=== PATIENT | male | born 1935 | race Caucasian/White ===

== ENCOUNTER 2016-03-29 14:20 | Emergency (ER) | payer OTHER, BC ==
[~2016-03-29] VITALS: Ht 182.9 cm; Wt 72.1 kg
[~2016-03-29 14:20] MED LIST: ASPIR 8181 M1 PO; ASPIRIN325 MG PO; CELEXA40 MG PO; COZAAR100 MG PO; DAILY VALUE1 EACH PO; DEPAKOTE500 MG PO; DONEPEZIL HCL5 MG PO; FISH OIL500 MG PO; GALANTAMINE HBR16 MG PO; HYTRIN1 MG PO; IRON18 MG PO; IRON325 M1 PO; LASIX20 MG PO; LOPRESSOR25 MG PO; LOSARTAN POTAS100 MG PO; MEGESTROL400 MG/10 PO; MIRALAX17 GM PO; MIRALAX255 GM PO; MULTIVITAMIN1 EAC2 PO; NAMENDA XR7 MG PO; PRAVACHOL40 MG PO; PROTONIX40 MG PO; RAZADYNE ER16 MG PO; SEROQUEL50 MG PO; SUCRALFATE1 GM PO; TYLENOL REGULA325 MG PO; XANAX0.25 MG PO; ZOFRAN4 MG PO
[2016-03-29 17:22] LABS: INTER. NORMALIZED RATIO 2.6; PROTHROMBIN TIME 27.5 (9.2-11.2)
[2016-03-29 18:12] VITALS: BP 133/81
== END 2016-03-29 18:13 | disposition home or self-care (01) ==
LOC: EME 14:20
PROVIDERS: Emergency Medicine
PROC: 3E0234Z Introduction of Serum, Toxoid and Vaccine into Muscle, Percutaneous Approach (ICD-10-PCS; principal; 2016-03-29)
DX: S02.2XXA Fracture of nasal bones, initial encounter for closed fracture (principal); S00.81XA Abrasion of other part of head, initial encounter; W19.XXXA Unspecified fall, initial encounter; F03.90 Unspecified dementia, unspecified severity, without behavioral disturbance, psychotic disturbance, mood disturbance, and anxiety; I48.91 Unspecified atrial fibrillation; Z79.01 Long term (current) use of anticoagulants; I10 Essential (primary) hypertension; J44.9 Chronic obstructive pulmonary disease, unspecified; K21.9 Gastro-esophageal reflux disease without esophagitis; E78.5 Hyperlipidemia, unspecified; R26.2 Difficulty in walking, not elsewhere classified; G89.29 Other chronic pain; M54.9 Dorsalgia, unspecified; Z95.0 Presence of cardiac pacemaker; Z87.891 Personal history of nicotine dependence
CPT/HCPCS: 70450; 70486; 71010; 85610; 99281; 99285

== ENCOUNTER 2017-03-10 13:39 | Emergency (ER) | payer OTHER, BC ==
[~2017-03-10] VITALS: Ht 177.8 cm; Wt 70.0 kg
[2017-03-10 14:06] LABS: HEMATOCRIT 34.8 % (38.0-50.0); HEMOGLOBIN 11.8 G/DL (12.5-16.6); MCH 31.7 PG (29.0-34.0); MCHC 33.9 G/DL (30.0-36.0); MCV 93.5 FL (86-99); PLATELET COUNT 250 K/uL (156-360); RBC DIS.WIDTH-CV 11.9 % (11.8-14.6); RBC DIS.WIDTH-SD 40.9 % (39-53); RED BLOOD COUNT 3.72 M/uL (4.00-5.50); WHITE BLOOD COUNT 5.2 K/uL (4.1-10.2)
[2017-03-10 14:17] LABS: ALBUMIN 3.5 g/dL (3.2-4.8)
[2017-03-10 14:18] LABS: CHLORIDE 109 mEq/L (99-109); POTASSIUM 3.6 mEq/L (3.7-5.4); SODIUM 142 mEq/L (136-147)
[2017-03-10 14:20] LABS: GLUCOSE 107 mg/dL (70-99); TOTAL PROTEIN 7.2 g/dL (6.4-8.3)
[2017-03-10 14:22] LABS: TOTAL BILIRUBIN 0.6 mg/dL (0.0-1.0)
[2017-03-10 14:23] LABS: ALKALINE PHOSPHATASE 80 IU/L (3-129)
[2017-03-10 14:24] LABS: CREATININE 0.9 mg/dL (0.6-1.3); GFR ESTIMATE (CALCULATED) > 59 mL/min/ (58.99-99999)
[2017-03-10 14:25] LABS: AST (GOT) 22 IU/L (2-34); UREA NITROGEN (BUN) 10 mg/dL (9-23)
[2017-03-10 14:26] LABS: ALT (GPT) 14 IU/L (3-49)
[2017-03-10] MEDS ORDERED: ZOFRAN4 MG PO (19:08)
[2017-03-10 19:24] VITALS: BP 139/84
== END 2017-03-10 19:25 | disposition home or self-care (01) ==
LOC: EME 13:39
DX: R11.2 Nausea with vomiting, unspecified (principal); T37.3X5A Adverse effect of other antiprotozoal drugs, initial encounter; K21.9 Gastro-esophageal reflux disease without esophagitis; J44.9 Chronic obstructive pulmonary disease, unspecified; I10 Essential (primary) hypertension; E78.5 Hyperlipidemia, unspecified; F03.90 Unspecified dementia, unspecified severity, without behavioral disturbance, psychotic disturbance, mood disturbance, and anxiety; F32.9 Major depressive disorder, single episode, unspecified; Z87.891 Personal history of nicotine dependence; Z95.0 Presence of cardiac pacemaker; Z86.73 Personal history of transient ischemic attack (TIA), and cerebral infarction without residual deficits; Z85.9 Personal history of malignant neoplasm, unspecified; Z88.2 Allergy status to sulfonamides
CPT/HCPCS: 80053; 81003; 85027; 99281; 99285

== ENCOUNTER 2017-04-03 11:24 | Emergency (ER) | payer OTHER, BC ==
[~2017-04-03] VITALS: Ht 177.8 cm; Wt 67.7 kg
[2017-04-03 12:35] LABS: BASOPHIL (%) 0.4 % (0-1); EOSINOPHIL (%) 4.1 % (0-5); EOSINOPHIL COUNT 0.3 K/uL (0-0.3); HEMATOCRIT 37.2 % (38.0-50.0); HEMOGLOBIN 12.5 G/DL (12.5-16.6); IMMATURE GRANULOCYTE (%) 0.4 % (0.0-0.7); LYMPHOCYTE (%) 18.9 % (15-42); LYMPHOCYTE COUNT 1.5 K/uL (1.0-2.8); MCH 31.8 PG (29.0-34.0); MCHC 33.6 G/DL (30.0-36.0); MCV 94.7 FL (86-99); MONOCYTE (%) 8.5 % (3-12); MONOCYTE COUNT 0.7 K/uL (0-0.8); NEUTROPHIL (%) 67.7 % (45-76); NEUTROPHIL COUNT 5.2 K/uL (1.8-6.4); PLATELET COUNT 247 K/uL (156-360); RBC DIS.WIDTH-SD 45.3 % (39-53); RED BLOOD COUNT 3.93 M/uL (4.00-5.50); WHITE BLOOD COUNT 7.7 K/uL (4.1-10.2)
[2017-04-03 12:47] LABS: CHLORIDE 108 mEq/L (99-109); SODIUM 137 mEq/L (136-147)
[2017-04-03 12:49] LABS: GLUCOSE 119 mg/dL (70-99)
[2017-04-03 12:53] LABS: CREATININE 0.9 mg/dL (0.6-1.3); GFR ESTIMATE (CALCULATED) > 59 mL/min/ (58.99-99999)
[2017-04-03 12:54] LABS: UREA NITROGEN (BUN) 12 mg/dL (9-23)
[2017-04-03 18:41] VITALS: BP 135/89
[2017-04-03 19:11] LABS: C DIFF TOXIN POSITIVE (NEGATIVE)
== END 2017-04-03 18:44 | disposition home or self-care (01) ==
LOC: EME 11:24
PROVIDERS: Emergency Medicine; Nurse Practitioner Family
DX: R19.7 Diarrhea, unspecified (principal); F03.90 Unspecified dementia, unspecified severity, without behavioral disturbance, psychotic disturbance, mood disturbance, and anxiety; R10.9 Unspecified abdominal pain; Z87.19 Personal history of other diseases of the digestive system; I10 Essential (primary) hypertension; E78.5 Hyperlipidemia, unspecified; Z86.73 Personal history of transient ischemic attack (TIA), and cerebral infarction without residual deficits; Z95.0 Presence of cardiac pacemaker; Z87.891 Personal history of nicotine dependence
CPT/HCPCS: 80048; 81003; 83605; 83630; 85025; 87177; 87493; J7030

== ENCOUNTER 2017-09-10 10:10 | Inpatient (IN) | payer OTHER, BC ==
[~2017-09-10] VITALS: Ht 180.3 cm; Wt 71.9 kg
[~2017-09-10 10:10] MED LIST changes: +NAMENDA10 MG PO
[2017-09-10 11:52] LABS: HEMATOCRIT 33.2 % (38.0-50.0); HEMOGLOBIN 11.6 G/DL (12.5-16.6); MCH 32.7 PG (29.0-34.0); MCHC 34.9 G/DL (30.0-36.0); MCV 93.5 FL (86-99); PLATELET COUNT 200 K/uL (156-360); RBC DIS.WIDTH-CV 13.1 % (11.8-14.6); RBC DIS.WIDTH-SD 44.8 % (39-53); RED BLOOD COUNT 3.55 M/uL (4.00-5.50)
[2017-09-10 11:58] LABS: INTER. NORMALIZED RATIO 2.8
[2017-09-10 12:15] LABS: CHLORIDE 109 mEq/L (99-109); POTASSIUM 4.1 mEq/L (3.7-5.4); SODIUM 138 mEq/L (136-147)
[2017-09-10 12:17] LABS: GLUCOSE 122 mg/dL (70-99)
[2017-09-10 12:21] LABS: CREATININE 1.1 mg/dL (0.6-1.3); GFR ESTIMATE (CALCULATED) > 59 mL/min/ (58.99-99999); UREA NITROGEN (BUN) 18 mg/dL (9-23)
[2017-09-10 12:25] LABS: TROP-I INTERPRETATION NEGATIVE; TROPONIN-I 0.01 ng/mL (0.0-0.30)
[2017-09-10] MEDS ORDERED: PANTOPRAZOLE SO40 MG PO (15:39)
[2017-09-10] MEDS ORDERED: MEGACE 40 MG40 MG/ML PO (15:45)
[2017-09-10] MEDS ORDERED: COUMADIN2.5 MG PO (15:47)
[2017-09-10] MEDS ORDERED: MELATONIN10 M1 PO (15:47)
[2017-09-10 18:24] LABS: APPEARANCE CLEAR ((CLEAR)); BILIRUBIN NEGATIVE; BLOOD SMALL; COLOR YELLOW ((YELLOW)); GLUCOSE (STRIP) NEGATIVE; KETONES 5; LEUKOCYTES NEGATIVE; NITRITE NEGATIVE; PROTEIN (STRIP) NEGATIVE; SPECIFIC GRAVITY 1.018 (1.000-1.030)
[2017-09-10 18:36] LABS: BACTERIA NONE SEEN /HPF; EPITHELIAL CELLS NONE SEEN /HPF; MUCUS NONE SEEN /LPF; RED BLOOD CELLS 0-5 /HPF (0-5); UCUL ADDED? NO; WHITE BLOOD CELLS 0-5 /HPF (0-5)
[2017-09-10 19:00] VITALS: BP 140/84
[2017-09-10 19:16] VITALS: BP 149/97
[2017-09-10 20:42] VITALS: BP 160/90
[2017-09-10 21:48] VITALS: BP 148/80
[2017-09-10 22:05] VITALS: BP 145/78
[2017-09-10 23:05] VITALS: BP 152/71
[2017-09-11] VITALS (14 sets, daily range): BP systolic 125–165; BP diastolic 65–85
[2017-09-11 07:04] LABS: INTER. NORMALIZED RATIO 2.3
[2017-09-11 07:17] LABS: CHLORIDE 110 MEQ/L (99-109); GFR ESTIMATE (CALCULATED) > 59 mL/min/ (58.99-99999); GLUCOSE 114 mg/dL (70-99); POTASSIUM 4.1 MEQ/L (3.7-5.4); SODIUM 143 MEQ/L (136-147); UREA NITROGEN (BUN) 17 mg/dL (9-23)
[2017-09-11 14:49] LABS: HEMATOCRIT 26.2 % (38.0-50.0); MCV 95.6 FL (86-99)
[2017-09-11 14:50] LABS: HEMOGLOBIN 8.9 G/DL (12.5-16.6)
[2017-09-11 15:00] LABS: INTER. NORMALIZED RATIO 1.8
[2017-09-11 15:03] LABS: PTT 30.4 SEC (25-37)
[2017-09-12] VITALS (8 sets, daily range): BP systolic 135–193; BP diastolic 67–88
[2017-09-12 06:49] LABS: BASOPHIL (%) 0.3 % (0-1); EOSINOPHIL (%) 2.3 % (0-5); EOSINOPHIL COUNT 0.2 K/uL (0-0.3); HEMATOCRIT 26.3 % (38.0-50.0); HEMOGLOBIN 8.8 G/DL (12.5-16.6); IMMATURE GRANULOCYTE (%) 0.4 % (0.0-0.7); LYMPHOCYTE (%) 17.3 % (15-42); LYMPHOCYTE COUNT 1.4 K/uL (1.0-2.8); MCH 32.1 PG (29.0-34.0); MCHC 33.5 G/DL (30.0-36.0); MONOCYTE (%) 8.6 % (3-12); MONOCYTE COUNT 0.7 K/uL (0-0.8); NEUTROPHIL (%) 71.1 % (45-76); NEUTROPHIL COUNT 5.6 K/uL (1.8-6.4); PLATELET COUNT 142 K/uL (156-360); RBC DIS.WIDTH-CV 13.3 % (11.8-14.6); RBC DIS.WIDTH-SD 46.5 % (39-53); WHITE BLOOD COUNT 7.8 K/uL (4.1-10.2)
[2017-09-12 06:52] LABS: INTER. NORMALIZED RATIO 1.4
[2017-09-12 06:54] LABS: PTT 26.2 SEC (25-37)
[2017-09-12 07:03] LABS: RED BLOOD COUNT 2.74 M/uL (4.00-5.50)
[2017-09-12 07:11] LABS: ALBUMIN 3.6 G/DL (3.2-4.8); ALKALINE PHOSPHATASE 62 IU/L (3-129); ALT (GPT) 23 IU/L (3-49); AST (GOT) 27 IU/L (2-34); CHLORIDE 111 MEQ/L (99-109); GFR ESTIMATE (CALCULATED) > 59 mL/min/ (58.99-99999); GLUCOSE 136 mg/dL (70-99); POTASSIUM 3.8 MEQ/L (3.7-5.4); SODIUM 143 MEQ/L (136-147); TOTAL BILIRUBIN 1.3 MG/DL (0.0-1.0); TOTAL PROTEIN 6.2 G/DL (6.4-8.3); UREA NITROGEN (BUN) 17 mg/dL (9-23)
[2017-09-12 10:56] LABS: HEMATOCRIT 24.8 % (38.0-50.0); HEMOGLOBIN 8.2 G/DL (12.5-16.6); MCV 96.5 FL (86-99)
[2017-09-13 04:00] VITALS: BP 157/74
[2017-09-13 05:56] LABS: BASOPHIL (%) 0.2 % (0-1); EOSINOPHIL (%) 0.3 % (0-5); HEMATOCRIT 26.1 % (38.0-50.0); HEMOGLOBIN 8.7 G/DL (12.5-16.6); IMMATURE GRANULOCYTE (%) 0.9 % (0.0-0.7); LYMPHOCYTE COUNT 0.8 K/uL (1.0-2.8); MCH 31.3 PG (29.0-34.0); MCHC 33.3 G/DL (30.0-36.0); MCV 93.9 FL (86-99); MONOCYTE (%) 8.1 % (3-12); MONOCYTE COUNT 0.5 K/uL (0-0.8); NEUTROPHIL (%) 78.5 % (45-76); NEUTROPHIL COUNT 5.2 K/uL (1.8-6.4); PLATELET COUNT 120 K/uL (156-360); RED BLOOD COUNT 2.78 M/uL (4.00-5.50); WHITE BLOOD COUNT 6.6 K/uL (4.1-10.2)
[2017-09-13 06:02] LABS: INTER. NORMALIZED RATIO 1.4
[2017-09-13 06:22] LABS: ALBUMIN 3.1 G/DL (3.2-4.8); ALKALINE PHOSPHATASE 50 IU/L (3-129); ALT (GPT) 20 IU/L (3-49); AST (GOT) 24 IU/L (2-34); CHLORIDE 111 MEQ/L (99-109); CREATININE 0.9 MG/DL (0.6-1.3); GFR ESTIMATE (CALCULATED) > 59 mL/min/ (58.99-99999); GLUCOSE 134 mg/dL (70-99); POTASSIUM 3.7 MEQ/L (3.7-5.4); SODIUM 141 MEQ/L (136-147); TOTAL BILIRUBIN 1.5 MG/DL (0.0-1.0); TOTAL PROTEIN 5.5 G/DL (6.4-8.3); UREA NITROGEN (BUN) 22 mg/dL (9-23)
[2017-09-13 08:30] VITALS: BP 143/94
[2017-09-13 11:24] VITALS: BP 136/64
[2017-09-13 15:44] VITALS: BP 132/65
[2017-09-13 19:51] VITALS: BP 148/69
[2017-09-13 23:48] VITALS: BP 133/71
[2017-09-14 04:00] VITALS: BP 106/53
[2017-09-14 06:54] LABS: INTER. NORMALIZED RATIO 1.3
[2017-09-14 08:12] LABS: HEMATOCRIT 25.3 % (38.0-50.0); HEMOGLOBIN 8.6 G/DL (12.5-16.6); MCV 94.4 FL (86-99)
[2017-09-14 08:22] VITALS: BP 130/71
[2017-09-14 11:58] VITALS: BP 109/57
[2017-09-14 15:24] VITALS: BP 109/59
[2017-09-14 20:26] VITALS: BP 151/69
[2017-09-14 23:44] VITALS: BP 108/59
[2017-09-15 04:50] VITALS: BP 108/57
[2017-09-15 07:38] LABS: HEMATOCRIT 23.6 % (38.0-50.0); HEMOGLOBIN 8.1 G/DL (12.5-16.6); MCV 93.7 FL (86-99)
[2017-09-15 07:46] LABS: INTER. NORMALIZED RATIO 1.4
[2017-09-15 08:28] VITALS: BP 135/63
[2017-09-15 11:55] VITALS: BP 132/64
[2017-09-15 16:57] VITALS: BP 142/68
[2017-09-15 19:27] VITALS: BP 116/56
[2017-09-15 23:55] VITALS: BP 139/61
[2017-09-16] VITALS (8 sets, daily range): BP systolic 128–173; BP diastolic 61–93
[2017-09-16 08:02] LABS: BASOPHIL (%) 0.2 % (0-1); EOSINOPHIL (%) 2.6 % (0-5); EOSINOPHIL COUNT 0.3 K/uL (0-0.3); HEMATOCRIT 24.9 % (38.0-50.0); HEMOGLOBIN 8.3 G/DL (12.5-16.6); IMMATURE GRANULOCYTE (%) 0.8 % (0.0-0.7); LYMPHOCYTE COUNT 0.8 K/uL (1.0-2.8); MCH 31.4 PG (29.0-34.0); MCHC 33.3 G/DL (30.0-36.0); MCV 94.3 FL (86-99); MONOCYTE (%) 6.4 % (3-12); MONOCYTE COUNT 0.6 K/uL (0-0.8); RBC DIS.WIDTH-CV 14.4 % (11.8-14.6); RBC DIS.WIDTH-SD 48.7 % (39-53); RED BLOOD COUNT 2.64 M/uL (4.00-5.50); WHITE BLOOD COUNT 9.8 K/uL (4.1-10.2)
[2017-09-16 08:03] LABS: PLATELET COUNT 186 K/uL (156-360)
[2017-09-16 08:09] LABS: INTER. NORMALIZED RATIO 1.7
[2017-09-16 08:29] LABS: ALKALINE PHOSPHATASE 69 IU/L (3-129); ALT (GPT) 25 IU/L (3-49); AST (GOT) 24 IU/L (2-34); CHLORIDE 115 MEQ/L (99-109); CREATININE 0.9 MG/DL (0.6-1.3); GFR ESTIMATE (CALCULATED) > 59 mL/min/ (58.99-99999); GLUCOSE 127 mg/dL (70-99); POTASSIUM 3.2 MEQ/L (3.7-5.4); SODIUM 145 MEQ/L (136-147); TOTAL BILIRUBIN 1.4 MG/DL (0.0-1.0); TOTAL PROTEIN 5.7 G/DL (6.4-8.3); UREA NITROGEN (BUN) 29 mg/dL (9-23)
[2017-09-17 05:21] VITALS: BP 135/67
[2017-09-17 06:59] LABS: BASOPHIL (%) 0.2 % (0-1); EOSINOPHIL (%) 1.5 % (0-5); EOSINOPHIL COUNT 0.1 K/uL (0-0.3); HEMATOCRIT 25.1 % (38.0-50.0); HEMOGLOBIN 8.3 G/DL (12.5-16.6); IMM.RETIC FRACTION 23.9 % (3-19); IMMATURE GRANULOCYTE (%) 1.1 % (0.0-0.7); LYMPHOCYTE COUNT 0.9 K/uL (1.0-2.8); MCH 31.2 PG (29.0-34.0); MCHC 33.1 G/DL (30.0-36.0); MCV 94.4 FL (86-99); MONOCYTE (%) 9.1 % (3-12); MONOCYTE COUNT 0.8 K/uL (0-0.8); NEUTROPHIL (%) 78.1 % (45-76); NEUTROPHIL COUNT 6.7 K/uL (1.8-6.4); PLATELET COUNT 193 K/uL (156-360); RBC DIS.WIDTH-CV 14.5 % (11.8-14.6); RBC DIS.WIDTH-SD 49.6 % (39-53); RED BLOOD COUNT 2.66 M/uL (4.00-5.50); RETIC HGB EQUIVALENT 29.9 (28-36); WHITE BLOOD COUNT 8.6 K/uL (4.1-10.2)
[2017-09-17 07:00] LABS: RETICULOCYTE COUNT 3.5 % (0.5-1.8)
[2017-09-17 07:23] LABS: CHLORIDE 115 MEQ/L (99-109); CREATININE 0.9 MG/DL (0.6-1.3); GFR ESTIMATE (CALCULATED) > 59 mL/min/ (58.99-99999); GLUCOSE 125 mg/dL (70-99); IRON 31 MCG/DL (35-150); POTASSIUM 3.2 MEQ/L (3.7-5.4); SODIUM 147 MEQ/L (136-147); TRANSFERRIN (TIBC) 171.5 mg/dL (215-380); TRANSFERRIN SATUR. 18 % (20-55); UREA NITROGEN (BUN) 22 mg/dL (9-23)
[2017-09-17 08:04] VITALS: BP 146/79
[2017-09-17 08:31] LABS: FERRITIN 129 NG/ML (22-322)
[2017-09-17 08:36] LABS: FOLIC ACID (FOLATE) 7.9 NG/ML (5.0-22.0)
[2017-09-17 10:43] LABS: MAGNESIUM 1.9 mg/dl (1.3-2.7)
[2017-09-17 11:10] VITALS: BP 142/71
[2017-09-17 16:28] VITALS: BP 162/79
[2017-09-17 20:20] VITALS: BP 162/82
[2017-09-17 23:59] VITALS: BP 127/79
[2017-09-18] VITALS (10 sets, daily range): BP systolic 120–159; BP diastolic 63–84
[2017-09-18 07:51] LABS: INTER. NORMALIZED RATIO 2.2
[2017-09-18 08:02] LABS: PCO2 25 mm Hg (35-45); PO2 57 mm Hg (80-100); pH 7.51 (7.35-7.45)
[2017-09-18 08:03] LABS: BASE EXCESS -2.3 mEq/L (-3 to +3); BICARBONATE 19.9 mEq/L (22-26); CARBOXY HGB 2.5 % (0-5); COMMENTS - BLOOD GASES A+C+; DEVICE VENTURI; FI02 50 %; METHEMOGLOBIN 1.1 % (0-1.5); O2 FLOW 12 L/MIN; SITE LR; TOTAL RESP RATE 25 resp/min
[2017-09-18 08:39] LABS: TROP-I INTERPRETATION NEGATIVE; TROPONIN-I 0.02 ng/mL (0.0-0.30)
[2017-09-18 12:09] LABS: BASOPHIL (%) 0.1 % (0-1); EOSINOPHIL (%) 1.3 % (0-5); EOSINOPHIL COUNT 0.1 K/uL (0-0.3); HEMATOCRIT 25.8 % (38.0-50.0); HEMOGLOBIN 8.6 G/DL (12.5-16.6); IMMATURE GRANULOCYTE (%) 0.9 % (0.0-0.7); LYMPHOCYTE (%) 8.9 % (15-42); LYMPHOCYTE COUNT 0.8 K/uL (1.0-2.8); MCH 31.5 PG (29.0-34.0); MCHC 33.3 G/DL (30.0-36.0); MCV 94.5 FL (86-99); MONOCYTE (%) 8.9 % (3-12); MONOCYTE COUNT 0.8 K/uL (0-0.8); NEUTROPHIL (%) 79.9 % (45-76); NEUTROPHIL COUNT 6.8 K/uL (1.8-6.4); PLATELET COUNT 174 K/uL (156-360); RBC DIS.WIDTH-SD 50.6 % (39-53); RED BLOOD COUNT 2.73 M/uL (4.00-5.50); WHITE BLOOD COUNT 8.5 K/uL (4.1-10.2)
[2017-09-18 12:41] LABS: CHLORIDE 117 MEQ/L (99-109); CREATININE 0.9 MG/DL (0.6-1.3); GFR ESTIMATE (CALCULATED) > 59 mL/min/ (58.99-99999); GLUCOSE 141 mg/dL (70-99); POTASSIUM 3.2 MEQ/L (3.7-5.4); SODIUM 149 MEQ/L (136-147); UREA NITROGEN (BUN) 20 mg/dL (9-23)
[2017-09-18 21:29] LABS: COMMENTS - BLOOD GASES C+; DEVICE NRB; SITE R RAD
[2017-09-18 21:30] LABS: BASE EXCESS -1 mEq/L (-3 to +3); BICARBONATE 21.2 mEq/L (22-26); CARBOXY HGB 2.1 % (0-5); FI02 100 %; METHEMOGLOBIN 0.8 % (0-1.5); O2 SATURATION (CALCULATED) 91.3 % (95-99); PCO2 26 mm Hg (35-45); PO2 51 mm Hg (80-100); pH 7.52 (7.35-7.45)
[2017-09-18 22:23] LABS: HIGH-SENS C-REACTIVE PROTEIN > 8.00 MG/DL (0.02-0.20)
[2017-09-19] VITALS (24 sets, daily range): BP systolic 100–154; BP diastolic 50–99
[2017-09-19 06:55] LABS: BASOPHIL (%) 0.2 % (0-1); EOSINOPHIL (%) 1.7 % (0-5); EOSINOPHIL COUNT 0.1 K/uL (0-0.3); HEMATOCRIT 27.2 % (38.0-50.0); HEMOGLOBIN 8.8 G/DL (12.5-16.6); LYMPHOCYTE (%) 10.5 % (15-42); LYMPHOCYTE COUNT 0.9 K/uL (1.0-2.8); MCH 31.4 PG (29.0-34.0); MCHC 32.4 G/DL (30.0-36.0); MCV 97.1 FL (86-99); MONOCYTE (%) 8.6 % (3-12); MONOCYTE COUNT 0.7 K/uL (0-0.8); NEUTROPHIL COUNT 6.5 K/uL (1.8-6.4); NRBC (%) 0.2 /100 WBC (0-0); PLATELET COUNT 130 K/uL (156-360); RBC DIS.WIDTH-SD 52.6 % (39-53); WHITE BLOOD COUNT 8.3 K/uL (4.1-10.2)
[2017-09-19 06:56] LABS: INTER. NORMALIZED RATIO 2.5
[2017-09-19 07:11] LABS: ALKALINE PHOSPHATASE 95 IU/L (3-129); ALT (GPT) 20 IU/L (3-49); AST (GOT) 23 IU/L (2-34); CHLORIDE 114 MEQ/L (99-109); CREATININE 0.9 MG/DL (0.6-1.3); GFR ESTIMATE (CALCULATED) > 59 mL/min/ (58.99-99999); GLUCOSE 145 mg/dL (70-99); POTASSIUM 3.3 MEQ/L (3.7-5.4); SODIUM 147 MEQ/L (136-147); TOTAL BILIRUBIN 1.4 MG/DL (0.0-1.0); TOTAL PROTEIN 5.8 G/DL (6.4-8.3); UREA NITROGEN (BUN) 21 mg/dL (9-23)
[2017-09-19 07:14] LABS: COMMENTS - BLOOD GASES C+; DEVICE HHFNC; FI02 80 %; O2 FLOW 35 L/MIN; SITE LR
[2017-09-19 07:15] LABS: BASE EXCESS -0.3 mEq/L (-3 to +3); BICARBONATE 22 mEq/L (22-26); CARBOXY HGB 2.1 % (0-5); METHEMOGLOBIN 1 % (0-1.5); O2 SATURATION (CALCULATED) 93.2 % (95-99); PCO2 27 mm Hg (35-45); PO2 57 mm Hg (80-100); pH 7.52 (7.35-7.45)
[2017-09-19 09:44] LABS: MAGNESIUM 1.8 mg/dl (1.3-2.7)
[2017-09-19 09:50] LABS: PHOSPHORUS 3.2 mg/dL (2.5-4.9)
[2017-09-19 10:40] LABS: HIGH-SENS C-REACTIVE PROTEIN > 8.00 MG/DL (0.02-0.20)
[2017-09-20] VITALS (34 sets, daily range): BP systolic 62–134; BP diastolic 31–79
[2017-09-20 06:22] LABS: ALT (GPT) 19 IU/L (3-49); AST (GOT) 31 IU/L (2-34); CHLORIDE 120 MEQ/L (99-109); CREATININE 1.2 MG/DL (0.6-1.3); GFR ESTIMATE (CALCULATED) > 59 mL/min/ (58.99-99999); GLUCOSE 159 mg/dL (70-99); PHOSPHORUS 2.8 mg/dL (2.5-4.9); POTASSIUM 3.1 MEQ/L (3.7-5.4); SODIUM 153 MEQ/L (136-147); TOTAL PROTEIN 5.8 G/DL (6.4-8.3)
[2017-09-20 06:26] LABS: UREA NITROGEN (BUN) 32 mg/dL (9-23)
[2017-09-20 06:27] LABS: ALKALINE PHOSPHATASE 128 IU/L (3-129); TOTAL BILIRUBIN 2.6 MG/DL (0.0-1.0)
[2017-09-20 07:04] LABS: HEMATOCRIT 25.7 % (38.0-50.0); HEMOGLOBIN 8.3 G/DL (12.5-16.6); MCH 31.1 PG (29.0-34.0); MCHC 32.3 G/DL (30.0-36.0); MCV 96.3 FL (86-99); NRBC (%) 0.4 /100 WBC (0-0); RBC DIS.WIDTH-CV 15.9 % (11.8-14.6); RBC DIS.WIDTH-SD 54.4 % (39-53); RED BLOOD COUNT 2.67 M/uL (4.00-5.50); WHITE BLOOD COUNT 13.4 K/uL (4.1-10.2)
[2017-09-20 07:13] LABS: ABS NEUTROPHIL COUNT 12.8; ANISOCYTOSIS 1+; BAND NEUTROPHILS 0.9 % (0-8.0); BURR CELLS 2+; EOSINOPHIL ABS CT 0.1; EOSINOPHILS 0.9 % (0-5.0); LYMPHOCYTES 0.9 % (15.0-45.0); METAMYELOCYTES 0.9 %; MONOCYTES 1.7 % (0-9.0); OVALOCYTES 1+; PLAT.SUFFICIENCY DECREASED; PLATELET COUNT 59 K/uL (156-360); POIKILOCYTOSIS 2+; POLYCHROMASIA 1+; SEG.NEUTROPHILS 94.7 % (46.0-76.0)
[2017-09-20 11:42] LABS: COMMENTS - BLOOD GASES C+; SITE LR
[2017-09-20 11:43] LABS: DEVICE VENT; FI02 100 %; MECHANICAL RATE 18 resp/min; MODE AC; PEEP 10 CM/H20; TIDAL VOLUME 500 ML; TOTAL RESP RATE 27 resp/min
[2017-09-20 11:44] LABS: BASE EXCESS -5.4 mEq/L (-3 to +3); BICARBONATE 21.1 mEq/L (22-26); CARBOXY HGB 3.1 % (0-5); METHEMOGLOBIN 0.9 % (0-1.5); O2 SATURATION (CALCULATED) 93.6 % (95-99); PCO2 45 mm Hg (35-45); PO2 68 mm Hg (80-100)
[2017-09-20 11:49] LABS: pH 7.28 (7.35-7.45)
[2017-09-20 16:48] LABS: BASOPHIL (%) 0.1 % (0-1); EOSINOPHIL (%) 0.3 % (0-5); EOSINOPHIL COUNT 0.1 K/uL (0-0.3); HEMATOCRIT 23.3 % (38.0-50.0); HEMOGLOBIN 7.4 G/DL (12.5-16.6); IMMATURE GRANULOCYTE (%) 4.8 % (0.0-0.7); LYMPHOCYTE COUNT 0.9 K/uL (1.0-2.8); MCH 32.2 PG (29.0-34.0); MCHC 31.8 G/DL (30.0-36.0); MONOCYTE (%) 4.8 % (3-12); MONOCYTE COUNT 0.8 K/uL (0-0.8); NEUTROPHIL COUNT 13.1 K/uL (1.8-6.4); NRBC (%) 2.1 /100 WBC (0-0); PLATELET COUNT 59 K/uL (156-360); RBC DIS.WIDTH-CV 16.5 % (11.8-14.6); WHITE BLOOD COUNT 15.5 K/uL (4.1-10.2)
[2017-09-20 16:49] LABS: ALBUMIN 2.9 g/dL (3.2-4.8); CHLORIDE 121 mEq/L (99-109); MCV 101.3 FL (86-99); SODIUM 156 mEq/L (136-147)
[2017-09-20 16:52] LABS: GLUCOSE 168 mg/dL (70-99); TOTAL PROTEIN 5.7 g/dL (6.4-8.3)
[2017-09-20 16:54] LABS: TOTAL BILIRUBIN 2.6 mg/dL (0.0-1.0)
[2017-09-20 16:55] LABS: ALKALINE PHOSPHATASE 170 IU/L (3-129); GFR ESTIMATE (CALCULATED) 36 mL/min/ (58.99-99999)
[2017-09-20 16:56] LABS: UREA NITROGEN (BUN) 39 mg/dL (9-23)
[2017-09-20 16:57] LABS: AST (GOT) 239 IU/L (2-34)
[2017-09-20 16:58] LABS: ALT (GPT) 105 IU/L (3-49)
[2017-09-20 17:01] LABS: CREATININE 1.9 mg/dL (0.6-1.3)
[2017-09-20 17:19] LABS: TROP-I INTERPRETATION POSITIVE
[2017-09-20 17:39] LABS: TROPONIN-I 2.19 ng/mL (0.0-0.30)
[2017-09-21] VITALS: BP 126/76
[2017-09-21 02:00] VITALS: BP 125/73
[2017-09-21 03:00] VITALS: BP 124/76
[2017-09-21 04:00] VITALS: BP 89/74
[2017-09-21 05:00] VITALS: BP 106/89
== END 2017-09-21 10:15 | DRG 480 ==
LOC: TRA 10:10 → EDOF 12:39 → 4WEST 12:39 → 3EAST 12:39 → ENRESERV 12:55 → 3EAST 20:20 → ENRESERV 09-18 14:22 → CANRESERV 09-18 14:24 → ENRESERV 09-18 14:24 → 3EAST 09-18 18:35 → ENRESERV 09-18 19:12 → 4WEST 09-18 20:37
PROVIDERS: Emergency Medicine; Hospitalist; Internal Medicine; Obstetrics & Gynecology; Orthopaedic Surgery; Physician Assistant
PROC: 30233K1 Transfusion of Nonautologous Frozen Plasma into Peripheral Vein, Percutaneous Approach (ICD-10-PCS; 2017-09-10)
PROC: 30233N1 Transfusion of Nonautologous Red Blood Cells into Peripheral Vein, Percutaneous Approach (ICD-10-PCS; 2017-09-10)
PROC: 0QS706Z Reposition Left Upper Femur with Intramedullary Internal Fixation Device, Open Approach (ICD-10-PCS; principal; 2017-09-12)
PROC: 0BH17EZ Insertion of Endotracheal Airway into Trachea, Via Natural or Artificial Opening (ICD-10-PCS; 2017-09-20)
PROC: 02HV33Z Insertion of Infusion Device into Superior Vena Cava, Percutaneous Approach (ICD-10-PCS; 2017-09-20)
PROC: 06HM33Z Insertion of Infusion Device into Right Femoral Vein, Percutaneous Approach (ICD-10-PCS; 2017-09-20)
PROC: 0BJ08ZZ Inspection of Tracheobronchial Tree, Via Natural or Artificial Opening Endoscopic (ICD-10-PCS; 2017-09-20)
PROC: 5A1935Z Respiratory Ventilation, Less than 24 Consecutive Hours (ICD-10-PCS; 2017-09-20)
PROC: 30253R1 (ICD-10-PCS; 2017-09-20)
PROC: 0DJ08ZZ Inspection of Upper Intestinal Tract, Via Natural or Artificial Opening Endoscopic (ICD-10-PCS; 2017-09-20)
DX: S72.142A Displaced intertrochanteric fracture of left femur, initial encounter for closed fracture (principal); A41.9 Sepsis, unspecified organism; R65.21 Severe sepsis with septic shock; J96.01 Acute respiratory failure with hypoxia; F05 Delirium due to known physiological condition; E46 Unspecified protein-calorie malnutrition; Y93.E1 Activity, personal bathing and showering; E87.2 Acidosis; Z66 Do not resuscitate; W18.2XXA Fall in (into) shower or empty bathtub, initial encounter; Z74.01 Bed confinement status; G30.9 Alzheimer's disease, unspecified; F02.80 Dementia in other diseases classified elsewhere, unspecified severity, without behavioral disturbance, psychotic disturbance, mood disturbance, and anxiety; R79.1 Abnormal coagulation profile; T45.515A Adverse effect of anticoagulants, initial encounter; N40.0 Benign prostatic hyperplasia without lower urinary tract symptoms; I10 Essential (primary) hypertension; E78.5 Hyperlipidemia, unspecified; I48.0 Paroxysmal atrial fibrillation; I48.2 Chronic atrial fibrillation; G31.83 Neurocognitive disorder with Lewy bodies; R13.10 Dysphagia, unspecified; S01.112A Laceration without foreign body of left eyelid and periocular area, initial encounter; S91.311A Laceration without foreign body, right foot, initial encounter; M85.80 Other specified disorders of bone density and structure, unspecified site; I73.9 Peripheral vascular disease, unspecified; J44.9 Chronic obstructive pulmonary disease, unspecified; D64.9 Anemia, unspecified; K21.9 Gastro-esophageal reflux disease without esophagitis; Z95.0 Presence of cardiac pacemaker; Z87.891 Personal history of nicotine dependence; Z88.2 Allergy status to sulfonamides; Y92.002 Bathroom of unspecified non-institutional (private) residence as the place of occurrence of the external cause; Z79.01 Long term (current) use of anticoagulants; Z79.82 Long term (current) use of aspirin; Z86.73 Personal history of transient ischemic attack (TIA), and cerebral infarction without residual deficits; Z88.0 Allergy status to penicillin; Z88.1 Allergy status to other antibiotic agents; Z68.22 Body mass index [BMI] 22.0-22.9, adult; Z78.1 Physical restraint status
CPT/HCPCS: 36600; 70450; 71045; 73502; 74018; 74230; 76000; 76705; 80048; 80053; 81003; 82607; 82728; 82746; 82803; 83540; 83735; 83880; 84100; 84145 90; 84466; 84484; 85014; 85018; 85025; 85025 91; 85027; 85046; 85610; 85730; 86141; 86850; 86900; 86901; 86920; 87040; 87070; 87205; 87641; 92526 GN; 92610 GN; 92611 GN; 93005; 94002; 94003; 94640; 94760; 94799; 99281; 99285; C1713; C1751; C1753; C9113; J0131; J0696; J1170; J1720; J1885; J1940; J1956; J2270; J2370; J2405; J2543; J2704; J3010; J3370; J3430; J3480; J7030; J7050; J7120; P9016; P9017; P9035; S0020; S0030